=== PATIENT | male | born 1985 | race Caucasian/White ===

== ENCOUNTER 2017-06-08 06:38 | Emergency (ER) | payer MEDICAID ==
[~2017-06-08] VITALS: Ht 170.2 cm; Wt 70.0 kg
[~2017-06-08 06:38] MED LIST: LOPE-155 PO
[2017-06-08] MEDS ORDERED: naloxone 2mg/2ml inj IV ONE (06:55)
[2017-06-08] MEDS ORDERED: normal saline 1000ML IV soln IVB ONE (06:55)
[2017-06-08 07:17] LABS: BASOPHILS % (AUTO) 0.4 % (0-1); EOSINOPHILS # (AUTO) 0.2 X10'3 (0-0.9); EOSINOPHILS % (AUTO) 1.8 % (0-6); HEMATOCRIT 38.4 % (42.0-52.0); HEMOGLOBIN 13.4 g/dl (14.0-17.9); LYMPHOCYTES # (AUTO) 2.9 X10'3 (1.1-4.8); LYMPHOCYTES % (AUTO) 32.7 % (21-51); MEAN CORPUSCULAR HEMOGLOBIN 30.6 PG (27.0-31.0); MEAN CORPUSCULAR HGB CONC 34.9 % (33.0-36.5); MEAN CORPUSCULAR VOLUME 87.5 FL (78-98); MEAN PLATELET VOLUME 6.8 FL (7.4-10.4); MONOCYTES # (AUTO) 0.6 X10'3 (0-0.9); MONOCYTES % (AUTO) 6.3 % (2-12); NEUTROPHILS # (AUTO) 5.2 X10'3 (1.8-7.7); NEUTROPHILS % (AUTO) 58.8 % (42-75); PLATELET COUNT 230 X10'3 (140-440); RED BLOOD COUNT 4.39 X10'6 (4.70-6.10); WHITE BLOOD COUNT 8.8 X10'3 (4.5-11.0)
[2017-06-08 07:28] LABS: PARTIAL THROMBOPLASTIN TIME 26 SECONDS (22-32); PROTHROMBIN TIME 10.6 SECONDS (9.0-12.0)
[2017-06-08 07:45] LABS: ALANINE AMINOTRANSFERASE 93 U/L (12-78); ALBUMIN 3.4 G/DL (3.4-5.0); ALBUMIN/GLOBULIN RATIO 0.8 (1.1-1.5); ALKALINE PHOSPHATASE 101 IU/L (46-116); ANION GAP 8 (8-16); ASPARTATE AMINO TRANSFERASE 55 U/L (10-37); BILIRUBIN,TOTAL 0.5 MG/DL (0.1-1.0); BLOOD UREA NITROGEN 14 MG/DL (7-18); BUN/CREATININE RATIO 16.5 (5.4-32.0); CALCIUM 8.4 MG/DL (8.5-10.1); CHLORIDE 102 MMOL/L (99-107); CREATINE KINASE 131 U/L (39-308); CREATININE 0.85 MG/DL (0.60-1.10); GLUCOSE 118 MG/DL (70-104); MAGNESIUM 2.3 MG/DL (1.5-2.4); POTASSIUM 3.3 MMOL/L (3.5-5.1); SODIUM 139 MMOL/L (135-145); TOTAL CARBON DIOXIDE 28.6 MMOL/L (24-32); TOTAL PROTEIN 7.5 G/DL (6.4-8.2); eGFR > 90 ML/MIN
[2017-06-08 07:46] LABS: ETHANOL < 0.010 GM/DL (0.0-0.010)
[2017-06-08] MEDS ORDERED: naloxone 2mg/2ml inj IV STA (09:01)
[2017-06-08] MEDS ORDERED: aspirin 81mg tab.chew PO ONE (10:10)
[2017-06-08 11:07] VITALS: BP 129/66
[2017-06-08] MEDS ORDERED: SULF1TAB48 PO (11:16)
== END 2017-06-08 11:09 | disposition home or self-care (01) ==
LOC: ER 06:38
DX: T40.1X1A Poisoning by heroin, accidental (unintentional), initial encounter (principal); J96.92 Respiratory failure, unspecified with hypercapnia; F17.210 Nicotine dependence, cigarettes, uncomplicated; Z87.442 Personal history of urinary calculi; Z59.0 Homelessness; Z88.0 Allergy status to penicillin; Z79.899 Other long term (current) drug therapy; Y92.89 Other specified places as the place of occurrence of the external cause
CPT/HCPCS: 36415; 71045; 80053; 80320; 82550; 83605; 83735; 83874; 84484; 85025; 85610; 85730; 87040; 93005; 96361; 96374; 96376; 99291; J2310; J7030